=== PATIENT | male | born 1955 | race Caucasian/White ===

== ENCOUNTER → 2021-08-18 | Outpatient (CLI) | payer MEDICARE ==
--- NOTE | 2021-08-18 09:43 | REP ---
INDICATION: RT UPPER QUAD ABD PAIN COMPARISON: None. TECHNIQUE: Real time bradshaw scale ultrasound examination using curved array transducer. FINDINGS: Liver is heterogeneous with decreased through transmission suggesting hepatosteatosis and hepatocellular disease. No focal hepatic lesion identified. Pancreas is incompletely evaluated due to interposed bowel gas. The gallbladder is normal and without gallstones, wall thickening, or pericholecystic fluid. No biliary ductal dilatation is appreciated and the common bile duct measures 4.0 mm diameter. Right kidney is normal in reniform shape without hydronephrosis and measures 10.4 x 4.4 x 4.4 cm. No ascites in the visualized right upper quadrant. IMPRESSION: 1. Hepatocellular disease and hepatosteatosis. <Electronically signed by Valdo Mo > 08/18/21 0947
[2021-08-18 10:16] LABS: BASO # 0.1 10^3/uL (0.0-0.2); BASO % 0.9 % (0.0-1.0); EOS # 0.2 10^3/uL (0.0-0.5); EOS % 2.5 % (0.0-3.0); HEMATOCRIT 46.1 % (42.0-52.0); HEMOGLOBIN 15.4 g/dl (13.5-17.5); LYMPH # 1.8 10^3/uL (1.5-5.0); LYMPH % 26.1 % (24.0-44.0); MEAN CORPUSCULAR HEMOGLOBIN 29.4 pg (27.0-33.0); MEAN CORPUSCULAR HGB CONC 33.4 g/dl (32.0-36.5); MEAN CORPUSCULAR VOLUME 88.1 fl (80.0-96.0); MONO # 0.5 10^3/uL (0.0-0.8); MONO % 7.1 % (2.0-8.0); NEUTROPHILS # 4.4 10^3/uL (1.5-8.5); NEUTROPHILS % 63.1 % (36.0-66.0); PLATELET COUNT, AUTOMATED 266 10^3/uL (150-450); RED BLOOD COUNT 5.23 10^6/uL (4.30-6.10); WHITE BLOOD COUNT 6.9 10^3/uL (4.0-10.0)
[2021-08-18 10:38] LABS: HEMOGLOBIN A1c 5.6 %
[2021-08-18 10:49] LABS: ALBUMIN 3.7 GM/DL (3.2-5.2); BILIRUBIN,TOTAL 0.6 MG/DL (0.2-1.0); CALCIUM LEVEL 8.7 MG/DL (8.8-10.2); CHOLESTEROL RISK RATIO 4.304 (<5); CREATININE FOR GFR 1.39 MG/DL (0.70-1.30); GLOMERULAR FILTRATION RATE 54.4 (>49); MAGNESIUM LEVEL 2.1 MG/DL (1.8-2.4); POTASSIUM SERUM 4.4 MEQ/L (3.5-5.1); TOTAL PROTEIN 6.9 GM/DL (6.4-8.2)
== END ==
LOC: M RAD 09:09
PROVIDERS: ATTEND Family Medicine
DX: R10.11 Right upper quadrant pain (principal); K76.0 Fatty (change of) liver, not elsewhere classified; K76.89 Other specified diseases of liver; Z13.1 Encounter for screening for diabetes mellitus; Z13.220 Encounter for screening for lipoid disorders; E83.42 Hypomagnesemia

== ENCOUNTER → 2022-03-11 | Outpatient (CLI) | payer OTHER | LOC: M RAD 11:02 | PROVIDERS: ATTEND Physician Assistant Medical | DX: M25.9 Joint disorder, unspecified (principal); M79.673 Pain in unspecified foot ==

== ENCOUNTER → 2023-04-03 | Outpatient (CLI) | payer OTHER | LOC: M SOG 07:51 | PROVIDERS: ATTEND Orthopaedic Surgery | DX: M25.512 Pain in left shoulder (principal); M19.012 Primary osteoarthritis, left shoulder ==

== ENCOUNTER → 2023-04-18 | Outpatient (CLI) | payer MEDICARE, OTHER | LOC: M PLAIMG 09:32 | PROVIDERS: ATTEND Orthopaedic Surgery | DX: M25.512 Pain in left shoulder (principal); M25.412 Effusion, left shoulder; M94.212 Chondromalacia, left shoulder; M25.712 Osteophyte, left shoulder; M79.89 Other specified soft tissue disorders; M77.8 Other enthesopathies, not elsewhere classified ==

== ENCOUNTER 2023-05-11 19:11 | Emergency (ER) | payer MEDICARE ==
[~2023-05-11] VITALS: Ht 176.5 cm; Wt 102.3 kg
[2023-05-11 19:11] VITALS: TEMP 100.5
[2023-05-11 19:40] LABS: BASO # 0.1 10^3/uL (0.0-0.2); BASO % 0.7 % (0.0-1.0); EOS # 0.1 10^3/uL (0.0-0.5); HEMATOCRIT 41.1 % (42.0-52.0); HEMOGLOBIN 13.2 g/dl (13.5-17.5); LYMPH # 1.2 10^3/uL (1.5-5.0); LYMPH % 13.1 % (24.0-44.0); MEAN CORPUSCULAR HEMOGLOBIN 28.1 pg (27.0-33.0); MEAN CORPUSCULAR HGB CONC 32.1 g/dl (32.0-36.5); MEAN CORPUSCULAR VOLUME 87.4 fl (80.0-96.0); MONO # 0.9 10^3/uL (0.0-0.8); MONO % 9.8 % (2.0-8.0); NEUTROPHILS # 6.9 10^3/uL (1.5-8.5); NEUTROPHILS % 75.2 % (36.0-66.0); PLATELET COUNT, AUTOMATED 278 10^3/uL (150-450); WHITE BLOOD COUNT 9.2 10^3/uL (4.0-10.0)
[2023-05-11 19:53] LABS: INR 1.07; PROTHROMBIN TIME 13.6 SECONDS (12.5-14.5)
[2023-05-11 20:01] LABS: CK-MB VALUE MASS 1.8 NG/ML (<3.6); LIPASE 36 U/L (12-53)
[2023-05-11 20:03] LABS: ALBUMIN 3.6 G/DL (3.2-5.2); ALKALINE PHOSPHATASE 83 U/L (46-116); ALT/SGPT 29 U/L (7.0-40); AST/SGOT 16 U/L (<34); BILIRUBIN,DIRECT 0.1 MG/DL (<0.4); BILIRUBIN,TOTAL 0.4 MG/DL (0.3-1.2); BLOOD UREA NITROGEN 13 MG/DL (9-23); CALCIUM LEVEL 8.4 MG/DL (8.3-10.6); CARBON DIOXIDE LEVEL 29 MMOL/L (20-31); CHLORIDE LEVEL 103 MMOL/L (98-107); CPK CREATINE PHOSPHOKINASE 153 U/L (46-171); CREATININE FOR GFR 1.12 MG/DL (0.70-1.30); GLOMERULAR FILTRATION RATE > 60.0 (>49); GLUCOSE, FASTING 105 MG/DL (74-106); MB/CK RELATIVE INDEX 1.17 (< OR =4); POTASSIUM SERUM 4.6 MMOL/L (3.5-5.1); SODIUM LEVEL 138 MMOL/L (136-145); TOTAL PROTEIN 6.5 G/DL (5.7-8.2)
[2023-05-11 21:15] VITALS: BP 149/86
[2023-05-11 21:26] VITALS: O2SAT 99
[2023-05-11 21:31] LABS: CK-MB VALUE MASS 1.8 NG/ML (<3.6); MB/CK RELATIVE INDEX 1.15 (< OR =4)
[2023-05-11 21:38] LABS: D-DIMER QUANT 0.43 ug/mL (<0.5)
[2023-05-11] MEDS ORDERED: KETOROLAC 30 MG/ML 1ML VIAL IV ONE (21:50)
[2023-05-11] MEDS ORDERED: methocarbamoL 500 MG TAB PO ONE (21:50)
[2023-05-11 22:34] LABS: RSV AMPLIFICATION NEGATIVE (NEGATIVE)
[2023-05-11] MEDS ORDERED: IBUP-1022 PO (23:01)
[2023-05-11] MEDS ORDERED: METH-1164 PO (23:01)
== END 2023-05-11 23:10 | disposition home or self-care (01) ==
LOC: M ED 19:11
DX: R07.9 Chest pain, unspecified (principal); M79.10 Myalgia, unspecified site; R00.0 Tachycardia, unspecified; Z79.1 Long term (current) use of non-steroidal anti-inflammatories (NSAID); Z79.899 Other long term (current) drug therapy
CPT/HCPCS: 71045; 80053; 82248; 82550; 82553; 83690; 84484; 85025; 85379; 85610; 87631; 93005; 96374; 99284; J1885

== ENCOUNTER → 2023-05-12 | Outpatient (CLI) | payer MEDICARE ==
[~2023-05-12] MED LIST: IBUP-1022 PO; METH-1164 PO
== END ==
LOC: M SOG 14:08
PROVIDERS: ATTEND Orthopaedic Surgery
DX: M43.22 Fusion of spine, cervical region (principal); M50.30 Other cervical disc degeneration, unspecified cervical region

== ENCOUNTER → 2023-06-08 | Outpatient (CLI) | payer MEDICARE ==
[~2023-06-08] MED LIST changes: +ISOVUE-300 61% 100ML VIAL As Ordered ONE; +LIDOCAINE 1% MDV 20ML VIAL As Ordered ONE; +methylPREDNISolone SUSP 40MG/ML 1ML VIAL (DEPO MEDROL) As Ordered ONE
== END ==
LOC: M RAD 15:22
PROVIDERS: ATTEND Orthopaedic Surgery
DX: M25.512 Pain in left shoulder (principal); M19.012 Primary osteoarthritis, left shoulder; Z53.9 Procedure and treatment not carried out, unspecified reason

== ENCOUNTER → 2023-06-13 | Outpatient (CLI) | payer MEDICARE ==
[~2023-06-13] MED LIST changes: -ISOVUE-300 61% 100ML VIAL As Ordered ONE; -LIDOCAINE 1% MDV 20ML VIAL As Ordered ONE; -methylPREDNISolone SUSP 40MG/ML 1ML VIAL (DEPO MEDROL) As Ordered ONE
[2023-06-13 14:58] LABS: CREATININE FOR GFR 1.33 MG/DL (0.70-1.30); GLOMERULAR FILTRATION RATE 56.9 (>49)
== END ==
LOC: M LAB 13:18
PROVIDERS: ATTEND Pain Medicine Interventional Pain Medicine
DX: M96.1 Postlaminectomy syndrome, not elsewhere classified (principal)

== ENCOUNTER → 2023-06-21 | Outpatient (CLI) | payer MEDICARE ==
[~2023-06-21] MED LIST changes: +ISOVUE-300 61% 100ML VIAL As Ordered ONE; +methylPREDNISolone SUSP 40MG/ML 1ML VIAL (DEPO MEDROL) As Ordered ONE
== END ==
LOC: M RAD 10:29
PROVIDERS: ATTEND Orthopaedic Surgery
DX: M25.512 Pain in left shoulder (principal); M19.012 Primary osteoarthritis, left shoulder
CPT/HCPCS: 20610; 77002; J0665; J1030; Q9967

== ENCOUNTER → 2023-07-06 | Outpatient (CLI) | payer MEDICARE ==
[~2023-07-06] MED LIST changes: -ISOVUE-300 61% 100ML VIAL As Ordered ONE; -methylPREDNISolone SUSP 40MG/ML 1ML VIAL (DEPO MEDROL) As Ordered ONE
== END ==
LOC: M PLARAD 09:26
PROVIDERS: ATTEND Pain Medicine Interventional Pain Medicine
DX: M96.1 Postlaminectomy syndrome, not elsewhere classified (principal); M48.02 Spinal stenosis, cervical region; M25.78 Osteophyte, vertebrae

== ENCOUNTER 2023-10-05 18:52 | Emergency (ER) | payer MEDICARE ==
[~2023-10-05] VITALS: Ht 177.8 cm; Wt 103.6 kg
[2023-10-05] MEDS ORDERED: OMEP40CA4 PO (19:02)
[2023-10-05] MEDS ORDERED: AZEL1SPR3 (19:02)
[2023-10-05] MEDS ORDERED: IPRA6SP (19:02)
[2023-10-05] MEDS ORDERED: FLUTISP (19:02)
[2023-10-05] MEDS: ACETAMINOPHEN 500 MG TAB PO ONE (20:51)
[2023-10-05 22:40] VITALS: BP 137/66; TEMP 97.2; O2SAT 97
== END 2023-10-05 22:42 | disposition home or self-care (01) ==
LOC: M ED 18:52
DX: S00.83XA Contusion of other part of head, initial encounter (principal); S80.02XA Contusion of left knee, initial encounter; S63.502A Unspecified sprain of left wrist, initial encounter; W01.198A Fall on same level from slipping, tripping and stumbling with subsequent striking against other object, initial encounter; Z96.652 Presence of left artificial knee joint; Y92.9 Unspecified place or not applicable; Y93.9 Activity, unspecified; Y99.9 Unspecified external cause status; Z79.83 Long term (current) use of bisphosphonates; Z79.899 Other long term (current) drug therapy

== ENCOUNTER → 2023-10-11 | Outpatient (CLI) | payer MEDICARE ==
[~2023-10-11] MED LIST changes: +AZEL1SPR3; +FLUTISP; +IPRA6SP; +OMEP40CA4 PO
== END ==
LOC: M RAD 15:51
PROVIDERS: ATTEND Physician Assistant
DX: S69.92XA Unspecified injury of left wrist, hand and finger(s), initial encounter (principal); X58.XXXA Exposure to other specified factors, initial encounter; Y92.9 Unspecified place or not applicable; Y93.9 Activity, unspecified; Y99.9 Unspecified external cause status

== ENCOUNTER → 2023-10-16 | Outpatient (REF) | payer MEDICARE | LOC: M LAB REF 16:21 | PROVIDERS: ATTEND Physician Assistant | DX: M25.439 Effusion, unspecified wrist (principal) ==

== ENCOUNTER 2023-10-24 18:17 | Emergency (ER) | payer MEDICARE ==
[~2023-10-24] VITALS: Ht 177.8 cm; Wt 84.4 kg
[2023-10-24] MEDS ORDERED: IBUP-1114 PO (23:39)
[2023-10-24] MEDS ORDERED: ACET-683 PO (23:40)
[2023-10-25] MEDS: DERMABOND TOPICAL SKIN ADHESIVE TOP ONE (00:55)
[2023-10-25 01:16] VITALS: BP 129/72
[2023-10-25 01:17] VITALS: TEMP 98.4; O2SAT 100
== END 2023-10-25 01:31 | disposition home or self-care (01) ==
LOC: M ED 18:17
DX: S01.111A Laceration without foreign body of right eyelid and periocular area, initial encounter (principal); S00.83XA Contusion of other part of head, initial encounter; W01.10XA Fall on same level from slipping, tripping and stumbling with subsequent striking against unspecified object, initial encounter; Y92.410 Unspecified street and highway as the place of occurrence of the external cause; Y93.9 Activity, unspecified; Y99.9 Unspecified external cause status; M21.372 Foot drop, left foot; K21.9 Gastro-esophageal reflux disease without esophagitis; Z79.899 Other long term (current) drug therapy

== ENCOUNTER 2023-11-06 20:08 | Emergency (ER) | payer MEDICARE ==
[~2023-11-06] VITALS: Ht 177.8 cm; Wt 105.3 kg
[2023-11-07 00:16] VITALS: TEMP 98.7
[2023-11-07 00:51] LABS: BASO # 0.1 10^3/uL (0.0-0.2); BASO % 0.9 % (0.0-1.0); EOS # 0.2 10^3/uL (0.0-0.5); EOS % 2.5 % (0.0-3.0); HEMATOCRIT 41.4 % (42.0-52.0); LYMPH % 23.4 % (24.0-44.0); MEAN CORPUSCULAR HEMOGLOBIN 29.4 pg (27.0-33.0); MEAN CORPUSCULAR HGB CONC 33.8 g/dl (32.0-36.5); MONO # 0.8 10^3/uL (0.0-0.8); MONO % 8.7 % (2.0-8.0); NEUTROPHILS # 5.5 10^3/uL (1.5-8.5); NEUTROPHILS % 64.3 % (36.0-66.0); PLATELET COUNT, AUTOMATED 242 10^3/uL (150-450); RED BLOOD COUNT 4.76 10^6/uL (4.30-6.10); WHITE BLOOD COUNT 8.6 10^3/uL (4.0-10.0)
[2023-11-07] MEDS ORDERED: ISOVUE-370 76% 100ML VIAL As Ordered ONE (02:26)
[2023-11-07 03:40] VITALS: BP 138/64; O2SAT 95
== END 2023-11-07 04:20 | disposition home or self-care (01) ==
LOC: M ED 20:08
DX: S20.219A Contusion of unspecified front wall of thorax, initial encounter (principal); M25.531 Pain in right wrist; W01.0XXA Fall on same level from slipping, tripping and stumbling without subsequent striking against object, initial encounter; M11.261 Other chondrocalcinosis, right knee; M17.11 Unilateral primary osteoarthritis, right knee; M25.462 Effusion, left knee; M85.862 Other specified disorders of bone density and structure, left lower leg; K21.9 Gastro-esophageal reflux disease without esophagitis; F12.10 Cannabis abuse, uncomplicated; Y92.480 Sidewalk as the place of occurrence of the external cause; Y93.9 Activity, unspecified; Y99.9 Unspecified external cause status; Z79.899 Other long term (current) drug therapy; Z79.83 Long term (current) use of bisphosphonates; Z79.1 Long term (current) use of non-steroidal anti-inflammatories (NSAID); Z96.652 Presence of left artificial knee joint; Z96.641 Presence of right artificial hip joint
CPT/HCPCS: 36415; 71260; 73110; 73552; 73564; 73590; 74177; 80047; 85025; 93041; 94760; 99284; Q9967

== ENCOUNTER → 2023-11-06 | Outpatient (CLI) | payer MEDICARE ==
[~2023-11-06] MED LIST changes: +ACET-683 PO; +IBUP-1114 PO
== END ==
LOC: M SOG 11:42
PROVIDERS: ATTEND Physician Assistant
DX: M25.531 Pain in right wrist (principal)

== ENCOUNTER → 2023-11-22 | Outpatient (REF) | payer MEDICARE ==
[2023-11-22 14:22] LABS: CALCIUM LEVEL 8.9 MG/DL (8.3-10.6); CREATININE FOR GFR 1.27 MG/DL (0.70-1.30); GLOMERULAR FILTRATION RATE 59.9 (>49); POTASSIUM SERUM 4.5 MMOL/L (3.5-5.1)
== END ==
LOC: M LAB REF 12:58
PROVIDERS: ATTEND Family Medicine Addiction Medicine
DX: N18.9 Chronic kidney disease, unspecified (principal)

== ENCOUNTER → 2024-03-07 | Outpatient (CLI) | payer MEDICARE | LOC: M RAD 10:32 | PROVIDERS: ATTEND Family Medicine Addiction Medicine | DX: M25.551 Pain in right hip (principal); Z96.641 Presence of right artificial hip joint ==

== ENCOUNTER → 2024-03-27 | Outpatient (CLI) | payer OTHER, MEDICARE | LOC: M RAD 13:41 | PROVIDERS: ATTEND Physician Assistant | DX: M25.531 Pain in right wrist (principal) ==

== ENCOUNTER → 2024-05-17 | Outpatient (CLI) | payer OTHER, MEDICARE | LOC: M PLARAD 13:23 | PROVIDERS: ATTEND Orthopaedic Surgery | DX: M25.531 Pain in right wrist (principal); M85.431 Solitary bone cyst, right ulna and radius; S63.591A Other specified sprain of right wrist, initial encounter; X58.XXXA Exposure to other specified factors, initial encounter; Y92.9 Unspecified place or not applicable; Y93.9 Activity, unspecified; Y99.9 Unspecified external cause status ==

== ENCOUNTER 2024-10-03 20:33 | Inpatient (IN) | payer MEDICARE, OTHER ==
[~2024-10-03] VITALS: Ht 175.3 cm; Wt 101.9 kg
[2024-10-03 21:25] LABS: BASO # 0.1 10^3/uL (0.0-0.2); BASO % 0.7 % (0.0-1.0); EOS # 0.2 10^3/uL (0.0-0.5); EOS % 2.9 % (0.0-3.0); HEMATOCRIT 42.9 % (42.0-52.0); HEMOGLOBIN 14.6 g/dl (13.5-17.5); LYMPH # 2.4 10^3/uL (1.5-5.0); LYMPH % 32.2 % (24.0-44.0); MEAN CORPUSCULAR HEMOGLOBIN 30.3 pg (27.0-33.0); MONO # 0.6 10^3/uL (0.0-0.8); MONO % 7.9 % (2.0-8.0); NEUTROPHILS # 4.2 10^3/uL (1.5-8.5); NEUTROPHILS % 56.2 % (36.0-66.0); PLATELET COUNT, AUTOMATED 273 10^3/uL (150-450); RED BLOOD COUNT 4.82 10^6/uL (4.30-6.10); WHITE BLOOD COUNT 7.5 10^3/uL (4.0-10.0)
[2024-10-03 21:31] LABS: INR 0.95
[2024-10-03 21:46] LABS: BLOOD UREA NITROGEN 20 MG/DL (9-23); CALCIUM LEVEL 8.3 MG/DL (8.3-10.6); CARBON DIOXIDE LEVEL 28 MMOL/L (20-31); CHLORIDE LEVEL 106 MMOL/L (98-107); CREATININE FOR GFR 1.17 MG/DL (0.70-1.30); GLOMERULAR FILTRATION RATE > 60.0 (>42); GLUCOSE, FASTING 100 MG/DL (74-106); POTASSIUM SERUM 4.1 MMOL/L (3.5-5.1); SODIUM LEVEL 143 MMOL/L (136-145)
[2024-10-03] MEDS: fentaNYL 100 MCG/2 ML INJECTION IV ONE (22:30)
[2024-10-04] MEDS: fentaNYL 100 MCG/2 ML INJECTION IV ONE (00:10)
[2024-10-04] MEDS: ANEXSIA, NORCO 7.5MG/325MG TABLET(HYDROCODONE/APAP) PO ONE (00:13)
[2024-10-04] MEDS: MORPHINE 4 MG/ML 1ML VIAL IV ONE (00:48)
[2024-10-04] MEDS ORDERED: MOM 30ML SUSPENSION UDC PO PRN (01:45)
[2024-10-04] MEDS: PANTOPRAZOLE 40MG VIAL IV SCH (02:17)
[2024-10-04] MEDS: NS (Normal Saline) 0.9% 1,000 ML IV SCH (02:17)
[2024-10-04 04:15] VITALS: BP 160/77; TEMP 97.2
[2024-10-04] MEDS: KETOROLAC 30 MG/ML 1ML VIAL IV PRN (04:21)
[2024-10-04 06:55] LABS: HEMOGLOBIN 13.1 g/dl (13.5-17.5); MEAN CORPUSCULAR HEMOGLOBIN 29.9 pg (27.0-33.0); MEAN CORPUSCULAR HGB CONC 33.6 g/dl (32.0-36.5); PLATELET COUNT, AUTOMATED 250 10^3/uL (150-450); RED BLOOD COUNT 4.38 10^6/uL (4.30-6.10); WHITE BLOOD COUNT 9.4 10^3/uL (4.0-10.0)
[2024-10-04 06:58] LABS: ALBUMIN 3.4 G/DL (3.2-5.2); ALKALINE PHOSPHATASE 77 U/L (40-129); ALT/SGPT 16 U/L (7.0-40); AST/SGOT 15 U/L (<34); BILIRUBIN,TOTAL 0.7 MG/DL (0.3-1.2); BLOOD UREA NITROGEN 15 MG/DL (9-23); CALCIUM LEVEL 8.6 MG/DL (8.3-10.6); CARBON DIOXIDE LEVEL 25 MMOL/L (20-31); CHLORIDE LEVEL 106 MMOL/L (98-107); CREATININE FOR GFR 1.07 MG/DL (0.70-1.30); GLOMERULAR FILTRATION RATE > 60.0 (>42); GLUCOSE, FASTING 113 MG/DL (74-106); POTASSIUM SERUM 4.2 MMOL/L (3.5-5.1); SODIUM LEVEL 141 MMOL/L (136-145); TOTAL PROTEIN 6.4 G/DL (5.7-8.2)
[2024-10-04] MEDS ORDERED: HOME MED LIST COMPLETE! XX SCH (07:50)
[2024-10-04 12:00] VITALS: BP 114/66; TEMP 97.5; O2SAT 97
[2024-10-04 19:25] VITALS: BP 100/78; TEMP 96.4; O2SAT 98
[2024-10-04] MEDS: MORPHINE 4 MG/ML 1ML VIAL IV PRN (20:12)
[2024-10-05] VITALS (9 sets, daily range): BP systolic 109–138; BP diastolic 73–85; TEMP 96.4–97.7; O2SAT 94–98
[2024-10-05] MEDS: ceFAZolin 2 GM/D5W 50 ML IV BAG As Ordered ONE (09:14)
[2024-10-05] MEDS ORDERED: LIDOCAINE 2% 100MG/5ML SDV (FOR ANES.) As Ordered ONE (09:41)
[2024-10-05] MEDS ORDERED: ROCURONIUM BROMIDE 50MG/5ML VIAL As Ordered ONE (09:41)
[2024-10-05] MEDS ORDERED: propofoL 200 MG/20 ML VIAL As Ordered ONE (09:41)
[2024-10-05] MEDS ORDERED: fentaNYL 100 MCG/2 ML INJECTION As Ordered ONE (09:41)
[2024-10-05] MEDS ORDERED: MIDAZOLAM INJ 2MG/2ML VIAL As Ordered ONE (09:41)
[2024-10-05] MEDS ORDERED: ONDANSETRON 4MG 2ML VIAL As Ordered ONE (09:41)
[2024-10-05] MEDS ORDERED: HYDROmorphone HCL 2MG/ML 1ML VIAL As Ordered ONE (09:41)
[2024-10-05] MEDS ORDERED: ACETAMINOPHEN 1000MG/100ML IV BAG As Ordered ONE (09:41)
[2024-10-05] MEDS ORDERED: METOCLOPRAMIDE INJ 10MG/2ML VIAL As Ordered ONE (09:41)
[2024-10-05] MEDS ORDERED: SUGAMMADEX SODIUM 500 MG/5 ML VIAL (BRIDION) As Ordered ONE (09:41)
[2024-10-05] MEDS ORDERED: dexmedeTOMIDine (4MCG/ML)200MCG/50ML BTL (PRECEDEX) As Ordered ONE (09:44)
[2024-10-05] MEDS ORDERED: ePHEDrine SULFATE 25 MG/5 ML(5MG/ML) SYRINGE As Ordered ONE (10:09)
[2024-10-05] MEDS: BUPivacaine LIPOSOME/PF 266MG 20ML VIAL (13.3MG/ML)(EXPAREL) As Ordered ONE (11:10)
[2024-10-05] MEDS ORDERED: diphenhydrAMINE 50MG/ML VIAL IV PRN (11:25)
[2024-10-05] MEDS ORDERED: ONDANSETRON 4MG 2ML VIAL IV PRN (11:25)
[2024-10-05] MEDS ORDERED: HYDROMORPHONE HCL 0.5 MG/ 0.5 ML SYRINGE IV PRN (11:25)
[2024-10-05] MEDS: ceFAZolin SOD 2 GM in IV 1 EA IV SCH (18:10)
[2024-10-06] MEDS: ACETAMINOPHEN 325 MG TAB PO PRN (03:46)
[2024-10-06 03:49] VITALS: BP 136/95; TEMP 98.1; O2SAT 96
[2024-10-06 08:12] LABS: HEMATOCRIT 33.7 % (42.0-52.0); HEMOGLOBIN 11.4 g/dl (13.5-17.5); MEAN CORPUSCULAR HEMOGLOBIN 30.4 pg (27.0-33.0); MEAN CORPUSCULAR HGB CONC 33.8 g/dl (32.0-36.5); MEAN CORPUSCULAR VOLUME 89.9 fl (80.0-96.0); PLATELET COUNT, AUTOMATED 230 10^3/uL (150-450); RED BLOOD COUNT 3.75 10^6/uL (4.30-6.10); WHITE BLOOD COUNT 10.4 10^3/uL (4.0-10.0)
[2024-10-06 08:57] LABS: ALKALINE PHOSPHATASE 65 U/L (40-129); ALT/SGPT 15 U/L (7.0-40); AST/SGOT 22 U/L (<34); BILIRUBIN,TOTAL 0.9 MG/DL (0.3-1.2); BLOOD UREA NITROGEN 12 MG/DL (9-23); CALCIUM LEVEL 8.2 MG/DL (8.3-10.6); CARBON DIOXIDE LEVEL 26 MMOL/L (20-31); CHLORIDE LEVEL 106 MMOL/L (98-107); CREATININE FOR GFR 1.21 MG/DL (0.70-1.30); GLOMERULAR FILTRATION RATE > 60.0 (>42); GLUCOSE, FASTING 152 MG/DL (74-106); POTASSIUM SERUM 3.8 MMOL/L (3.5-5.1); SODIUM LEVEL 143 MMOL/L (136-145); TOTAL PROTEIN 5.9 G/DL (5.7-8.2)
[2024-10-06] MEDS: IPRATROPIUM 0.06% NASAL SPRAY 15 ML (ATROVENT) SCH (09:52)
[2024-10-06] MEDS: AZELASTINE 137MCG NASAL SPY 30 ML (ASTELIN) SCH (09:52)
[2024-10-06] MEDS: FLUTICASONE PROP 0.05% NASAL SPRAY 16 GM (FLONASE) SCH (09:52)
[2024-10-06] MEDS: OMEPRAZOLE 20MG CAP PO SCH (09:52)
[2024-10-06] MEDS ORDERED: ACET32TAB PO (10:19)
[2024-10-06] MEDS ORDERED: OXYC1TAB23 PO (10:19)
[2024-10-06] MEDS ORDERED: ASPI325T57 PO (10:22)
== END 2024-10-06 12:50 | disposition home or self-care (01) | DRG 481 ==
LOC: EDBD 20:33 → M ED 20:33 → M ED INP 10-04 01:41 → M MS5PR 10-04 04:12
PROVIDERS: ADMIT Student in an Organized Health Care Education/Training Program; ATTEND Internal Medicine
PROC: 0QSC04Z Reposition Left Lower Femur with Internal Fixation Device, Open Approach (ICD-10-PCS; principal; 2024-10-05 08:00)
DX: S72.402A Unspecified fracture of lower end of left femur, initial encounter for closed fracture (principal); M97.12XA Periprosthetic fracture around internal prosthetic left knee joint, initial encounter; D62 Acute posthemorrhagic anemia; K21.9 Gastro-esophageal reflux disease without esophagitis; Z96.652 Presence of left artificial knee joint; W00.0XXA Fall on same level due to ice and snow, initial encounter; Y92.009 Unspecified place in unspecified non-institutional (private) residence as the place of occurrence of the external cause; Z79.899 Other long term (current) drug therapy

== ENCOUNTER → 2024-10-17 | Outpatient (CLI) | payer MEDICARE ==
[~2024-10-17] MED LIST changes: +ACET32TAB PO; +ASPI325T57 PO; +OXYC1TAB23 PO
== END ==
LOC: M SOG 07:45
PROVIDERS: ATTEND Physician Assistant
DX: M84.452D Pathological fracture, left femur, subsequent encounter for fracture with routine healing (principal); M19.072 Primary osteoarthritis, left ankle and foot; Z87.81 Personal history of (healed) traumatic fracture; Z96.652 Presence of left artificial knee joint

== ENCOUNTER → 2024-11-27 | Outpatient (CLI) | payer MEDICARE | LOC: M SOG 07:52 | PROVIDERS: ATTEND Physician Assistant | DX: M84.452A Pathological fracture, left femur, initial encounter for fracture (principal); M25.572 Pain in left ankle and joints of left foot; M16.12 Unilateral primary osteoarthritis, left hip; Z98.890 Other specified postprocedural states; Z96.652 Presence of left artificial knee joint ==

== ENCOUNTER 2025-03-15 02:25 | Emergency (ER) | payer MEDICARE, OTHER ==
[~2025-03-15] VITALS: Ht 177.8 cm; Wt 100.3 kg
[~2025-03-15 02:25] MED LIST changes: -IBUP-1022 PO; +IBUP600T42 PO
[2025-03-15 03:21] LABS: BASO # 0.0 10^3/uL (0.0-0.2); BASO % 0.4 % (0.0-1.0); EOS # 0.2 10^3/uL (0.0-0.5); EOS % 2.0 % (0.0-3.0); LYMPH # 1.6 10^3/uL (1.5-5.0); LYMPH % 16.1 % (24.0-44.0); MONO # 0.5 10^3/uL (0.0-0.8); MONO % 5.2 % (2.0-8.0); NEUTROPHILS # 7.5 10^3/uL (1.5-8.5); NEUTROPHILS % 76.0 % (36.0-66.0); PLATELET COUNT, AUTOMATED 362 10^3/uL (150-450)
[2025-03-15 03:47] LABS: ALT/SGPT 18.0 U/L (7.0-40); AST/SGOT 18.0 U/L (<34); CALCIUM LEVEL 9.2 MG/DL (8.3-10.6); CARBON DIOXIDE LEVEL 26.0 MMOL/L (20-31); CHLORIDE LEVEL 105.0 MMOL/L (98-107); CREATININE FOR GFR 1.24 MG/DL (0.70-1.30); GLOMERULAR FILTRATION RATE 62.6 (>42); POTASSIUM SERUM 4.4 MMOL/L (3.5-5.1); SODIUM LEVEL 141.0 MMOL/L (136-145)
[2025-03-15 05:25] VITALS: BP 155/82; TEMP 97
[2025-03-15 05:43] LABS: APPEARANCE, URINE HAZY (CLEAR); BACTERIA, URINE AUTO NEGATIVE (NEGATIVE); BILIRUBIN, URINE AUTO NEGATIVE (NEGATIVE); BLOOD, URINE BLOOD NEGATIVE (NEGATIVE); GLUCOSE, URINE (UA) AUTO NEGATIVE (NEGATIVE); KETONE, URINE AUTO TRACE mg/dL (NEGATIVE); LEUKOCYTE ESTERASE, URINE AUTO NEGATIVE (NEGATIVE); MUCUS, URINE SMALL (NEGATIVE); NITRITE, URINE AUTO NEGATIVE (NEGATIVE); PROTEIN, URINE AUTO NEGATIVE (NEGATIVE); RBC, URINE AUTO 0 /HPF (0-3); SPECIFIC GRAVITY URINE AUTO 1.024 (1.002-1.035); SQUAMOUS EPITHELIAL CELL UR AU 0 /HPF (0-6); UROBILINOGEN, URINE AUTO 0.2 mg/dL (0.0-2.0); WBC, URINE AUTO 1 /HPF (0-3)
[2025-03-15] MEDS ORDERED: ANUS25SU PR (06:04)
[2025-03-15] MEDS ORDERED: PHEN26CR TOP (06:04)
[2025-03-15 06:25] VITALS: O2SAT 98
[2025-03-15] MEDS: KETOROLAC 30 MG/ML 1 ML VIAL IV ONE (06:31)
[2025-03-15] MEDS: ACETAMINOPHEN 500 MG TAB PO ONE (06:31)
[2025-03-15] MEDS: ANUSOL HC 25 MG SUPP PR STA (06:32)
[2025-03-15] MEDS: ANUSOL HC CREAM 30 GM TOP STA (06:32)
== END 2025-03-15 06:40 | disposition home or self-care (01) ==
LOC: M ED 02:25
DX: K64.9 Unspecified hemorrhoids (principal); K21.9 Gastro-esophageal reflux disease without esophagitis; Z79.84 Long term (current) use of oral hypoglycemic drugs; Z79.899 Other long term (current) drug therapy; Z79.51 Long term (current) use of inhaled steroids; Z79.1 Long term (current) use of non-steroidal anti-inflammatories (NSAID)
CPT/HCPCS: 80048; 80076; 81001; 83690; 85025; 87507; 96374; 99284; J1885

== ENCOUNTER → 2025-03-17 | Outpatient (REF) | payer MEDICARE ==
[~2025-03-17] MED LIST changes: +ANUS25SU PR; +COLA100C5 PO; +IBUP-1022 PO; -IBUP600T42 PO; +PHEN26CR TOP
[2025-03-17 14:27] LABS: NITRITE, URINE MANUAL NEGATIVE (NEGATIVE); PH,URINE MAN 5.0 UNITS (5.0 - 7.0); SPECIFIC GRAVITY,URINE MANUAL 1.025 (1.002-1.035)
[2025-03-17 14:28] LABS: BILIRUBIN, URINE MANUAL NEGATIVE (NEGATIVE); BLOOD URINE MANUAL NEGATIVE (NEGATIVE); GLUCOSE, URINE (UA) MANUAL NEGATIVE (NEGATIVE); KETONE, URINE MANUAL NEGATIVE (NEGATIVE); LEUKOCYTE ESTERASE, URINE MAN NEGATIVE (NEGATIVE); PROTEIN, URINE MANUAL TRACE mg/dL (NEGATIVE); UROBILINOGEN, URINE MANUAL NORMAL (NORMAL)
[2025-03-17 14:29] LABS: APPEARANCE, URINE MANUAL CLEAR (CLEAR); COLOR, URINE MANUAL AMBER (YELLOW)
[2025-03-17 14:46] LABS: AMORPHOUS SEDIMENT, URINE MOD AMOUNT (NEGATIVE); BACTERIA, URINE NONE SEEN; HYALINE CAST, URINE NONE SEEN /lpf (0-1); MUCUS, URINE MOD AMOUNT (NEGATIVE); RBC, URINE NONE SEEN /hpf (0-3); SQUAMOUS EPITHELIAL CELL URINE NONE SEEN /hpf (SMALL AMT); WBC, URINE NONE SEEN /hpf (0-3)
== END ==
LOC: M LAB REF 13:58
PROVIDERS: ATTEND Family Medicine Addiction Medicine
DX: R31.0 Gross hematuria (principal)

== ENCOUNTER 2025-03-18 00:47 | Emergency (ER) | payer MEDICARE ==
[~2025-03-18] VITALS: Ht 177.8 cm; Wt 100.0 kg
[~2025-03-18 00:47] MED LIST changes: -COLA100C5 PO
[2025-03-18] MEDS: SENNA 8.6 MG TAB PO STA (02:45)
[2025-03-18] MEDS: DOCUSATE SODIUM 100 MG CAPSULE PO ONE (02:45)
[2025-03-18] MEDS ORDERED: PHEN26CR TOP (02:57)
[2025-03-18] MEDS ORDERED: COLA100C5 PO (02:57)
[2025-03-18 03:10] VITALS: BP 155/81; TEMP 98.2; O2SAT 98
== END 2025-03-18 03:12 | disposition home or self-care (01) ==
LOC: M ED 00:47
DX: K59.00 Constipation, unspecified (principal); K21.9 Gastro-esophageal reflux disease without esophagitis; J45.909 Unspecified asthma, uncomplicated; Z79.1 Long term (current) use of non-steroidal anti-inflammatories (NSAID); Z79.82 Long term (current) use of aspirin; Z79.51 Long term (current) use of inhaled steroids; Z79.899 Other long term (current) drug therapy; R31.0 Gross hematuria

== ENCOUNTER → 2025-03-18 | Outpatient (REF) | payer MEDICARE ==
[2025-03-18 16:28] LABS: BASO # 0.1 10^3/uL (0.0-0.2); BASO % 1.0 % (0.0-1.0); EOS # 0.2 10^3/uL (0.0-0.5); EOS % 2.1 % (0.0-3.0); LYMPH # 1.2 10^3/uL (1.5-5.0); LYMPH % 13.7 % (24.0-44.0); MONO # 0.5 10^3/uL (0.0-0.8); MONO % 5.5 % (2.0-8.0); NEUTROPHILS # 6.5 10^3/uL (1.5-8.5); NEUTROPHILS % 77.5 % (36.0-66.0); PLATELET COUNT, AUTOMATED 390 10^3/uL (150-450)
[2025-03-18 16:41] LABS: INR 0.99
== END ==
LOC: M LAB REF 16:16
PROVIDERS: ATTEND Family Medicine Addiction Medicine
DX: R31.0 Gross hematuria (principal)

== ENCOUNTER → 2025-04-30 | Outpatient (REF) | payer MEDICARE ==
[~2025-04-30] MED LIST changes: +COLA100C5 PO; -IBUP-1022 PO; +IBUP600T42 PO
[2025-04-30 15:56] LABS: BASO # 0.1 10^3/uL (0.0-0.2); BASO % 1.3 % (0.0-1.0); EOS # 0.1 10^3/uL (0.0-0.5); EOS % 1.5 % (0.0-3.0); LYMPH # 1.6 10^3/uL (1.5-5.0); LYMPH % 23.3 % (24.0-44.0); MONO # 0.4 10^3/uL (0.0-0.8); MONO % 5.7 % (2.0-8.0); NEUTROPHILS # 4.6 10^3/uL (1.5-8.5); NEUTROPHILS % 68.1 % (36.0-66.0); PLATELET COUNT, AUTOMATED 321 10^3/uL (150-450)
== END ==
LOC: M LAB REF 14:46
PROVIDERS: ATTEND Family Medicine Addiction Medicine
DX: D64.9 Anemia, unspecified (principal)

== ENCOUNTER → 2025-05-07 | Outpatient (CLI) | payer MEDICARE | LOC: M SOG 06:54 | PROVIDERS: ATTEND Orthopaedic Surgery | DX: S72.492D Other fracture of lower end of left femur, subsequent encounter for closed fracture with routine healing (principal) ==

== ENCOUNTER 2025-07-07 18:36 | Emergency (ER) | payer MEDICARE, OTHER ==
[~2025-07-07] VITALS: Ht 175.3 cm; Wt 101.8 kg
[2025-07-07 18:40] VITALS: TEMP 98.2
[2025-07-07 23:15] VITALS: BP 158/77; O2SAT 99
[2025-07-07] MEDS ORDERED: MEDR4PAK PO (23:22)
[2025-07-07] MEDS ORDERED: NAPR-885 PO (23:22)
== END 2025-07-07 23:32 | disposition home or self-care (01) ==
LOC: M ED 18:36
DX: M77.01 Medial epicondylitis, right elbow (principal); Z79.1 Long term (current) use of non-steroidal anti-inflammatories (NSAID); Z79.899 Other long term (current) drug therapy

== ENCOUNTER → 2025-07-11 | Outpatient (CLI) | payer MEDICARE ==
[~2025-07-11] MED LIST changes: +MEDR4PAK PO; +NAPR-885 PO
== END ==
LOC: M SOG 07:40
PROVIDERS: ATTEND Physician Assistant
DX: M79.631 Pain in right forearm (principal); M25.421 Effusion, right elbow